=== PATIENT | male | born 1990 | race American Indian/Alaskan Native ===

== ENCOUNTER 2018-12-31 09:21 | Emergency (ER) | payer SELFPAY ==
[2018-12-31 09:26] VITALS: BP 134/76
[2018-12-31] MEDS ORDERED: NACL 0.9% 1000 ML 1,000 ML IV ONE (09:28)
[2018-12-31 09:55] LABS: Basophils % (Auto) 0.6 % (0.0-1.8); Eosinophils # (Auto) 0.3 K/mm3 (0.0-0.4); Eosinophils % (Auto) 4.8 % (0.0-4.3); Hematocrit 43.1 % (35.5-45.6); Lymphocytes # (Auto) 2.6 K/mm3 (1.2-5.4); Lymphocytes % (Auto) 42.8 % (13.4-35.0); Mean Corpuscular HGB Conc 35 % (32-34); Mean Corpuscular Volume 86 fl (84-94); Monocytes # (Auto) 0.5 K/mm3 (0.0-0.8); Monocytes % (Auto) 7.7 % (0.0-7.3); Platelet Count 234 K/mm3 (140-440); Red Blood Count 5.01 M/mm3 (3.65-5.03)
[2018-12-31 10:10] LABS: Alanine Aminotransferase 10 units/L (7-56); BUN/Creatinine Ratio 13; Blood Urea Nitrogen 10 mg/dL (9-20); Calcium 8.8 mg/dL (8.4-10.2); Hemolysis Index 16
[2018-12-31] MEDS ORDERED: PROTONIX IV ONE (10:31)
[2018-12-31] MEDS ORDERED: ZOFRAN IV ONE (10:32)
[2018-12-31] MEDS ORDERED: MORPHINE IV ONE (10:33)
--- NOTE | 2018-12-31 10:55 | Emergency Department Report ---
ED General Adult HPI - General Chief complaint: Abdominal Pain Stated complaint: STOMACH PAIN Time Seen by Provider: 12/31/18 10:02 Source: patient Mode of arrival: Ambulatory Limitations: No Limitations - History of Present Illness Initial comments: Patient presents to emergency department with chief complaint of lower abdominal pain that started last Saturday. Patient also complains of some nausea, vomiting, diarrhea since that time as well. Patient denies any chest pain, shortness breath, or headache. -: Sudden Location: abdomen Severity scale (0 -10): 3 Quality: other (cramping) Consistency: constant Improves with: none Worsens with: none Associated Symptoms: denies other symptoms Treatments Prior to Arrival: none - Related Data Previous Rx's Medication Instructions Recorded Last Taken Type Ondansetron [Zofran Odt] 4 mg PO Q4HR PRN #20 tab.rapdis 12/31/18 Unknown Rx Promethazine [Phenergan TAB] 25 mg PO Q6HR PRN #20 tab 12/31/18 Unknown Rx traMADol [Ultram] 50 mg PO Q6HR PRN #24 tablet 12/31/18 Unknown Rx Allergies Allergy/AdvReac Type Severity Reaction Status Date / Time No Known Allergies Allergy Verified 12/31/18 10:12 ED Review of Systems ROS: Stated complaint: STOMACH PAIN Other details as noted in HPI Comment: All other systems reviewed and negative Constitutional: denies: chills, fever Eyes: denies: eye pain, eye discharge, vision change ENT: denies: ear pain, throat pain Respiratory: denies: cough, shortness of breath, wheezing Cardiovascular: denies: chest pain, palpitations Endocrine: no symptoms reported Gastrointestinal: abdominal pain, nausea, vomiting, diarrhea Genitourinary: denies: urgency, dysuria Musculoskeletal: denies: back pain, joint swelling, arthralgia Skin: denies: rash, lesions Neurological: denies: headache, weakness, paresthesias Psychiatric: denies: anxiety, depression Hematological/Lymphatic: denies: easy bleeding, easy bruising ED Past Medical Hx - Past Medical History Previous Medical History?: No - Surgical History Past Surgical History?: No - Social History Smoking Status: Current Every Day Smoker Substance Use Type: Marijuana - Medications Home Medications: Home Medications Medication Instructions Recorded Confirmed Last Taken Type Ondansetron [Zofran Odt] 4 mg PO Q4HR PRN #20 tab.rapdis 12/31/18 Unknown Rx Promethazine [Phenergan TAB] 25 mg PO Q6HR PRN #20 tab 12/31/18 Unknown Rx traMADol [Ultram] 50 mg PO Q6HR PRN #24 tablet 12/31/18 Unknown Rx ED Physical Exam - General Limitations: No Limitations General appearance: alert, in no apparent distress - Head Head exam: Present: atraumatic, normocephalic - Eye Eye exam: Present: normal appearance, PERRL, EOMI - ENT ENT exam: Present: mucous membranes moist - Neck Neck exam: Present: normal inspection - Respiratory Respiratory exam: Present: normal lung sounds bilaterally. Absent: respiratory distress, wheezes, rales - Cardiovascular Cardiovascular Exam: Present: regular rate, normal rhythm. Absent: systolic murmur, diastolic murmur, rubs, gallop - GI/Abdominal GI/Abdominal exam: Present: soft, normal bowel sounds. Absent: distended, tenderness - Rectal Rectal exam: Present: deferred - Extremities Exam Extremities exam: Present: normal inspection - Back Exam Back exam: Present: normal inspection - Neurological Exam Neurological exam: Present: alert, oriented X3, CN II-XII intact. Absent: motor sensory deficit - Psychiatric Psychiatric exam: Present: normal affect, normal mood - Skin Skin exam: Present: warm, dry, intact, normal color. Absent: rash ED Course Vital Signs 12/31/18 09:25 Temperature 97.7 F Pulse Rate 81 Respiratory 18 Rate Blood Pressure 134/76 O2 Sat by Pulse 99 Oximetry ED Medical Decision Making - Lab Data Result diagrams: 12/31/18 09:38 12/31/18 09:38 Lab Results 12/31/18 12/31/18 12/31/18 Range/Units 09:38 09:38 09:38 WBC 6.1 (4.5-11.0) K/mm3 RBC 5.01 (3.65-5.03) M/mm3 Hgb 15.0 (11.8-15.2) gm/dl Hct 43.1 (35.5-45.6) % MCV 86 (84-94) fl MCH 30 (28-32) pg MCHC 35 H (32-34) % RDW 14.0 (13.2-15.2) % Plt Count 234 (140-440) K/mm3 Lymph % (Auto) 42.8 H (13.4-35.0) % [place] % (Auto) 7.7 H (0.0-7.3) % Eos % (Auto) 4.8 H (0.0-4.3) % Baso % (Auto) 0.6 (0.0-1.8) % Lymph # 2.6 (1.2-5.4) K/mm3 [place] # 0.5 (0.0-0.8) K/mm3 Eos # 0.3 (0.0-0.4) K/mm3 Baso # 0.0 (0.0-0.1) K/mm3 Seg Neutrophils % 44.1 (40.0-70.0) % Seg Neutrophils # 2.7 (1.8-7.7) K/mm3 Sodium 141 (137-145) mmol/L Potassium 4.3 (3.6-5.0) mmol/L Chloride 104.2 (98-107) mmol/L Carbon Dioxide 28 (22-30) mmol/L Anion Gap 13 mmol/L BUN 10 (9-20) mg/dL Creatinine 0.8 (0.8-1.5) mg/dL Estimated GFR > 60 ml/min BUN/Creatinine Ratio 13 % Glucose 110 H (75-100) mg/dL Calcium 8.8 (8.4-10.2) mg/dL Total Bilirubin 0.30 (0.1-1.2) mg/dL AST 15 (5-40) units/L ALT 10 (7-56) units/L Alkaline Phosphatase 58 (35-129) units/L Total Protein 6.1 L (6.3-8.2) g/dL Albumin 4.0 (3.9-5) g/dL Albumin/Globulin Ratio 1.9 % Lipase 28 (13-60) units/L - Medical Decision Making Discussed results with the patient Critical care attestation.: If time is entered above; I have spent that time in minutes in the direct care of this critically ill patient, excluding procedure time. ED Disposition Clinical Impression: Nausea & vomiting, Diarrhea Disposition: DC- TO HOME OR SELFCARE Is pt being admited?: No Does the pt Need Aspirin: No Condition: Stable Instructions: Acute Nausea and Vomiting (ED), Acute Diarrhea (ED), Abdominal Pain (ED) Additional Instructions: return if worse Referrals: MARGE NESBITT MD [Primary Care Provider] - 3-5 Days [facility] [Provider Group] - 3-5 Days [facility] [Provider Group] - 3-5 Days JARETH ROBLERO MD [Staff Physician] - 3-5 Days Time of Disposition: 12:51
== END 2018-12-31 13:10 | disposition home or self-care (01) ==
LOC: ED 09:21
DX: R11.2 Nausea with vomiting, unspecified (principal); R19.7 Diarrhea, unspecified; R10.30 Lower abdominal pain, unspecified; F17.200 Nicotine dependence, unspecified, uncomplicated
CPT/HCPCS: 36415; 80053; 83690; 85025; 96361; 96374; 96375; 99283; C9113; J2270; J2405; J7030

== ENCOUNTER 2021-03-25 09:55 | Emergency (ER) | payer BC ==
[2021-03-25 10:25] VITALS: BP 121/76
--- NOTE | 2021-03-25 11:20 | Emergency Department Report ---
Chief Complaint: Upper Respiratory Infection Stated Complaint: FEELING SICK Time Seen by Provider: 03/25/21 11:17 - HPI History of Present Illness: Patient is a 31-year-old male presents emergency room because of URI symptoms that began 2 days ago. He has associated sinus pressure, generalized body aches, headache, rhinorrhea, nasal congestion, dry cough. He denies any fever, nausea, vomiting, diarrhea, shortness of breath, chest pain, abdominal pain. He denies any known sick contacts or recent travel. He states he has been taking NyQuil and [place]. No past medical history. no Allergies medications. Vitals are normal On exam: Non toxic appearing, no acute distress atraumatic, normocephalic normal appearance of the eyes, PERRL, EOMI, no periorbital edema or ecchymosis moist mucus membranes, normal oropharynx, normal TMs and canals bilaterally regular heart rate and rhythm, no gallops, no rubs, no murmurs breath sounds are clear bilaterally, no w/r/r, no stridor, no respiratory distress, no accessory muscle use A&O x4, no focal neuro deficit skin is warm, dry, intact Patient is presenting for viral URI symptoms He has no clinical signs of bacterial bronchitis or bacterial pneumonia at this time No clinical signs of bacterial sinusitis He has only had symptoms for 2 days Advised patient Please increase your fluid intake over the next several days. May take Tylenol or ibuprofen as needed for any discomfort. May take Mucinex or TheraFlu [id number] to help with your symptoms. May use a humidifier. Follow-up with your primary care doctor. Recommend for you to get outpatient COVID-19 testing and quarantine as necessary, please follow CDC guidelines. Return to emergency room for any new or worsening symptoms or if symptoms are persisting greater than 10 days. Discussed return precautions Medical screening exam is performed and there is no threat to life or limb at this time - Exam Vital Signs: Vital Signs 03/25/21 10:00 Temperature 98.4 F Pulse Rate 86 Respiratory 20 Rate Blood Pressure 121/76 O2 Sat by Pulse 97 Oximetry MSE screening note: Focused history and physical exam performed. ED Disposition for MSE Clinical Impression: Viral URI Disposition: Z- MED SCREENING EXAM-LEFT Is pt being admited?: No Does the pt Need Aspirin: No Condition: Stable Instructions: Viral Respiratory Infection Additional Instructions: Please increase your fluid intake over the next several days. May take Tylenol or ibuprofen as needed for any discomfort. May take Mucinex or TheraFlu [id number] to help with your symptoms. May use a humidifier. Follow-up with your primary care doctor. Recommend for you to get outpatient COVID-19 testing and quarantine as necessary, please follow CDC guidelines. Return to emergency room for any new or worsening symptoms or if symptoms are persisting greater than 10 days. Referrals: JOSÉ MIGUEL NOLAN MD [Staff Physician] - 2-3 Days [facility] [Provider Group] - 2-3 Days Time of Disposition: 11:19 Print Language: ALBANIAN
== END 2021-03-25 12:36 | disposition left against medical advice (07) ==
LOC: ED 09:55
DX: J06.9 Acute upper respiratory infection, unspecified (principal); B97.89 Other viral agents as the cause of diseases classified elsewhere; Z53.21 Procedure and treatment not carried out due to patient leaving prior to being seen by health care provider